=== PATIENT | male | born 1945 | race Caucasian/White ===

== ENCOUNTER 2018-07-17 11:51 | Outpatient (CLI) | payer MEDICARE ==
[2018-07-17 13:08] LABS: #Eosinphils 0.2 thou/uL (0.0-0.7); #Lymphocytes 1.4 thou/uL (1.20-3.40); #Monocytes 0.6 thou/uL (0.11-0.59); #Neutrophils 4.5 thou/uL (1.40-6.50); %Basophils 0.7 % (0.0-1.0); %Eosinophils 3.4 % (0.0-10.0); %Lymphocytes 19.9 % (21.0-51.0); %Monocytes 8.9 % (0.0-10.0); %Neutrophils 67.1 % (42.0-75.0); Hemoglobin 14.1 g/dL (14.0-18.0); Mean Corpuscular HGB CONC 33.5 g/dL (32.0-36.0); Mean Corpuscular Volume 92.4 fL (78.0-98.0); Mean Platelet Volume 8.4 fL (7.4-10.4); Platelet Count 204 thou/uL (130-400); RBC Distribution Width 13.1 % (11.5-14.5); Red Blood Cell (RBC) Count 4.57 mill/uL (4.70-6.10); White Blood Cell (WBC) Count 6.8 thou/uL (4.8-10.8)
[2018-07-17 13:21] LABS: INR-International Normal Ratio 1.2; PTT 29.3 SEC (22.9-36.1); Prothrombin Time 14.9 SEC (12.0-14.7)
[2018-07-17 13:37] LABS: ALT (SGPT) 22 U/L (8-55); AST (SGOT) 24 U/L (5-34); Albumin 4.9 g/dL (3.4-4.8); Alkaline Phosphatase 120 U/L (40-150); Anion Gap 14 mmol/L (10-20); BUN (Urea Nitrogen) 19 mg/dL (8.4-25.7); Bilirubin, Total 1.3 mg/dL (0.2-1.2); Calc. Creatinine Clearance 0 mL/min (70-130); Calcium 10.2 mg/dL (7.8-10.44); Carbon Dioxide 26 mmol/L (23-31); Chloride 106 mmol/L (98-107); Estimated GFR-MDRD 64; Globulin 2.5 g/dL (2.4-3.5); Glucose 100 mg/dL (83-110); Potassium 4.4 mmol/L (3.5-5.1); Protein, Total 7.4 g/dL (5.8-8.1); Sodium 142 mmol/L (136-145)
--- NOTE | 2018-07-17 13:47 | RAD ---
PA AND LATERAL CHEST: History: Pre-operative evaluation. FINDINGS: The heart size is borderline. The aorta is tortuous. The lungs are well expanded without lobar consol idation, pneumothoraces, jaleel pulmonary edema or pleural effusions. There are degenerative changes i n the spine. IMPRESSION: No radiographic evidence of acute cardiopulmonary process. POS: [facility]
--- NOTE | 2018-07-17 17:47 | EKG ---
Test Reason : Blood Pressure : / mmHG Vent. Rate : 052 BPM Atrial Rate : 052 BPM P-R Int : 166 ms QRS Dur : 094 ms QT Int : 426 ms P-R-T Axes : 062 -01 -54 degrees QTc Int : 396 ms Sinus bradycardia Left ventricular hypertrophy with repolarization abnormality Abnormal ECG When compared with ECG of 04-MAY-2015 14:06, T wave inversion more evident in Inferior leads T wave inversion now evident in Lateral leads Confirmed by DR. Juan Manuel STEINBERG ([id number]) on 07/17/2018 5:47:34 PM Referred By: PREM Confirmed By:DR. Juan Manuel STEINBERG
== END 2018-07-17 11:52 | disposition home or self-care (01) ==
LOC: LABBT 11:51
PROVIDERS: ATTEND Internal Medicine Cardiovascular Disease
DX: Z01.818 Encounter for other preprocedural examination (principal)
CPT/HCPCS: 71046; 80053; 85025; 85610; 85730; 93005; 93010

== ENCOUNTER 2018-07-23 05:53 | Inpatient (IN) | payer MEDICARE ==
[2018-07-23] MEDS ORDERED: Lidocaine 1% (PF) 30 ML VIAL ONE (06:39)
[2018-07-23] MEDS ORDERED: Fentanyl 100 MCG/2 ML VIAL ONE (07:05)
[2018-07-23] MEDS ORDERED: Heparin 10,000 UNITS/1 ML VIAL ONE (07:05)
[2018-07-23] MEDS ORDERED: Midazolam HCl 2 mg/2 ml Vial ONE (07:06)
[2018-07-23] MEDS ORDERED: Nitroglycerin 4.9 GM Bottle ONE (07:23)
[2018-07-23] MEDS ORDERED: Protamine Sulfate 50 MG/5 ML VIAL ONE (07:29)
[2018-07-23] MEDS ORDERED: Acetaminophen/Codeine 30-300mg Tablet PO PRN ×2 (07:53)
[2018-07-23] MEDS ORDERED: Nitroglycerin 0.4 MG TAB (25 Tab Bottle) SL PRN (07:53)
[2018-07-23] MEDS ORDERED: traMADol HCl 50 MG TAB PO PRN (07:53)
[2018-07-23] MEDS ORDERED: Sodium Chloride 0.9% 200 ML IV SCH (08:00)
[2018-07-23] MEDS ORDERED: Sodium Chloride 0.9% 1,000 ML IV SCH (08:00)
[2018-07-23 08:03] LABS: Cardiac Risk 3.5 (Less than 4.5)
[2018-07-23] MEDS ORDERED: Iopamidol 370 76% 100 ML VIAL ONE (08:26)
[2018-07-23] MEDS ORDERED: Iopamidol 370 76% 50 ML VIAL FS ONE (08:26)
[2018-07-23] MEDS ORDERED: Multivit, Therapeutic 1 TAB PO SCH (09:00)
[2018-07-23] MEDS ORDERED: Aspirin 325 mg Enteric Coated Tablet PO SCH (09:00)
[2018-07-23] MEDS ORDERED: Allopurinol 100 MG TAB PO SCH (09:00)
[2018-07-23] MEDS: Metoprolol Tartrate 25 MG TAB PO SCH ×2 (09:00→22:36)
[2018-07-23] MEDS: Nitroglycerin 2% Ointment 1 INCH/1 GM Packet TOP SCH ×2 (13:32→18:11)
[2018-07-23 15:24] VITALS: BMI 23.4
[2018-07-23] MEDS ORDERED: Communication Order-Pharmacy FS SCH (18:05)
[2018-07-23] MEDS ORDERED: Simvastatin 20 MG TAB PO SCH (21:00)
[2018-07-23] MEDS ORDERED: Atorvastatin Calcium 20 MG TAB PO SCH (21:00)
[2018-07-23] MEDS ORDERED: Famotidine 20 MG TAB PO SCH (21:00)
[2018-07-24] MEDS: Nitroglycerin 2% Ointment 1 INCH/1 GM Packet TOP SCH ×2 (02:51→06:29)
[2018-07-24] MEDS: Metoprolol Tartrate 25 MG TAB PO SCH ×2 (05:02→20:32)
[2018-07-24] MEDS ORDERED: CEFAZOLIN/Water 2 GM/20 ML SYRINGE ONE (06:12)
[2018-07-24] MEDS ORDERED: Midazolam HCl 5 mg/5 ml Vial ONE (06:30)
[2018-07-24] MEDS ORDERED: Phenylephrine HCL 10 MG/ML VIAL ONE (06:30)
[2018-07-24] MEDS ORDERED: Vecuronium 10 MG VIAL ONE ×2 (06:30→14:40)
[2018-07-24] MEDS ORDERED: Fentanyl 250 MCG/5 ML VIAL ONE (06:30)
[2018-07-24] MEDS ORDERED: Dexmedetomidine 200 MCG/2 ML VIAL ONE (06:30)
[2018-07-24] MEDS ORDERED: Albumin 5% 500 ML ONE (06:32)
[2018-07-24] MEDS ORDERED: Heparin 10,000 UNITS/1 ML VIAL 30,000 UNITS in Sodium Chloride 0.9% 1,000 ML FS SCH (06:45)
--- NOTE | 2018-07-24 07:23 | CON ---
DATE OF CONSULTATION: 07/23/2018 REQUESTING PHYSICIAN: Dr. Beebe. CHIEF COMPLAINT: Abnormal stress test. HISTORY OF PRESENT ILLNESS: The patient is a 73-year-old man with back problems that have progressed to the point that he now needs back surgery. Prior to getting to the point that he was no longer ab le to walk on the treadmill, he would consistently get chest tightness after about 10-15 minutes of w alking on the treadmill and that discomfort would resolve quite promptly when he would stop and rest. He did not have any associated diaphoresis, nausea or shortness of breath. He underwent stress tevin ting as part of preoperative evaluation prior to back surgery and that was markedly abnormal. His seline EKG was consistent with an LVH strain pattern and the nuclear stress testing showed reversible ischemia in the lateral wall, inferior wall, distal septum and apex. Cardiac catheterization today shows serial high grade lesions in the LAD and an occluded circumflex and an occluded right coronary. Dr. Beebe thought that his EF was around 45%-50%. I thought it was more like about 40%. PAST MEDICAL HISTORY: Significant for hyperlipidemia and kidney stones. HOME MEDICATIONS: Adult aspirin a day, simvastatin 20 mg at bedtime, Zantac 150 mg at bedtime, omepr azole 20 mg a day, allopurinol 150 mg a day, and a multivitamin. After his catheterization today, he was admitted to the hospital. His statin was switched to Lipitor 20 mg and he was started on Lopres sor 25 mg b.i.d. ALLERGIES: He denies any medical allergies. SOCIAL HISTORY: He has never smoked. FAMILY HISTORY: Significant for coronary artery disease in both of his parents. He has an older sis ter who has coronary artery disease. REVIEW OF SYSTEMS: Negative for any transient eye, speech, facial or extremity symptoms to suggest T IA. He is positive for his back pain. Prior to having to stop walking because of his back problems, he did not have any claudication symptoms. He has not had any recent illnesses. PHYSICAL EXAMINATION: GENERAL: Fairly healthy-appearing man in no distress. VITAL SIGNS: Height 5 foot 10.5, weight is 174 pounds, heart rate is 48, blood pressure 150/75, temp erature 97.9, room air sats are 96%. HEENT: He has no xanthelasma. NECK: No JVD, no carotid bruits. CHEST: Clear to auscultation. CARDIOVASCULAR: He has a regular rate and rhythm. ABDOMEN: Soft and nontender. EXTREMITIES: He has easily palpable radial, dorsalis pedis, and posterior tibial pulses. He has no clubbing, cyanosis or edema. He has no obvious varicosities. NEUROLOGIC: Grossly nonfocal. LABORATORY DATA AND IMAGING: Shows a white count of 6.8, hemoglobin 14.1, hematocrit 42.2, platelets 204,000. PT was 14.9, INR 1.2. Sodium 142, potassium 4.4, chloride 106, CO2 26, glucose 100, BUN 1 9, creatinine 1.12, bilirubin is 1.3, alkaline phosphatase 120, AST 24, ALT 22, albumin is 4.9, calci um 10.2, triglycerides 63, cholesterol 127, LDL 78, HDL 36. His chest x-ray showed some prominent va scular markings. Cardiac silhouette is probably the upper limit of normal. He has fairly prominent calcifications in his aortic knob. His cardiac catheterization shows a right dominant system. His l eft main is normal. The LAD has multiple 70%-90% lesions in its mid portion with an 80%-90% lesion j ust beyond the first septal church organist, there is a stenotic isolated diagonal, there is a compromised ramus with a high grade lesion proximally in it, but it bifurcates quickly and the branch vessels pr obably are too small to bypass. The circumflex proper is occluded and a bifurcated obtuse marginal c an be seen faintly filling left to left collaterals. The right coronary is occluded proximally and t he crux and distal branch vasculature can be faintly seen by left to right collaterals. LVEF by my e stimation is about 40% with global hypokinesis with LV pressure 178/6 and LV pressure on pullback 177 /73. LVEDP was 13. IMPRESSION AND PLAN: Three-vessel coronary artery disease with a low normal or perhaps mildly decrea sed LV function in a patient who is having class 2-3 angina prior to his back getting to the point th at he could not maintain an exercise regimen and who is in need of back surgery. I would discuss baldo atment options with the patient and I think he would be well served by coronary artery bypass graftnadia marin, which we will plan on doing tomorrow.
[2018-07-24] MEDS ORDERED: hydrALAZINE 20 MG/ML VIAL SLOW IVP PRN (07:45)
[2018-07-24] MEDS ORDERED: Hetastarch 6% 500 ML 500 ML IVPB PRN (07:45)
[2018-07-24] MEDS ORDERED: Post-Op Insulin Drip Protocol IVPB ONE (07:45)
[2018-07-24] MEDS ORDERED: Fentanyl 100 MCG/2 ML VIAL SLOW IVP PRN (07:45)
[2018-07-24] MEDS ORDERED: Mag-Al 1200 mg/1200 mg/30 ML UDCUP PO PRN (07:45)
[2018-07-24] MEDS ORDERED: DOPamine 400 MG/D5W 250 ML 250 ML IVPB PRN (07:45)
[2018-07-24] MEDS ORDERED: Promethazine HCl 25 MG/ML VIAL IM PRN (07:45)
[2018-07-24] MEDS ORDERED: Bisacodyl 5 MG TAB PO PRN (07:45)
[2018-07-24] MEDS ORDERED: HYDROcodone/Acetaminophen 5/325 mg Tablet PO PRN (07:45)
[2018-07-24] MEDS ORDERED: Nitroglycerin 50 MG/250 ML BOT 250 ML IVPB PRN (07:45)
[2018-07-24] MEDS ORDERED: Bisacodyl 10 MG SUPP PR PRN (07:45)
[2018-07-24] MEDS ORDERED: Acetaminophen 325 MG TAB PO PRN (07:45)
[2018-07-24] MEDS ORDERED: Guaifenesin DM 100-10/5 ML UDCUP PO PRN (07:45)
[2018-07-24] MEDS ORDERED: Lidocaine 2% PF 100 mg/5 ml Syringe ONE (07:57)
[2018-07-24] MEDS ORDERED: Sodium Bicarb 50 MEQ/50 ML VIAL ONE ×2 (07:57→14:40)
[2018-07-24] MEDS ORDERED: Nitroglycerin 50 MG/250 ML BOT ONE (07:57)
[2018-07-24] MEDS ORDERED: Calcium Chloride 1 GM/10 ML Abboject SYRINGE ONE (07:57)
[2018-07-24] MEDS ORDERED: Potassium Chloride 60 MEQ/30 ML VIAL ONE (07:57)
[2018-07-24] MEDS ORDERED: Mannitol 12.5 GM/50 ML ONE (07:57)
[2018-07-24] MEDS ORDERED: Magnesium 5 GM/10 ML VIAL ONE ×2 (07:57→14:40)
[2018-07-24] MEDS ORDERED: Aminocaproic Acid 5 GM/20 ML VIAL ONE ×2 (07:57→14:40)
[2018-07-24] MEDS ORDERED: Dextrose 50% Abboject 50 ML SYRINGE SLOW IVP PRN (08:20)
[2018-07-24] MEDS ORDERED: Insulin Regular 300 UNITS/3 ML VIAL SC PRN (08:20)
[2018-07-24] MEDS ORDERED: Dextrose 5% in Water 1,000 ML IV PRN (08:20)
[2018-07-24] MEDS ORDERED: Heparin 10,000 UNITS/1 ML VIAL ONE (08:32)
[2018-07-24] MEDS: Aspirin 325 MG TAB PO SCH (11:16)
[2018-07-24] MEDS: Ketorolac Tromethamine 30 MG/ML VIAL IVP SCH ×3 (12:21→22:39)
[2018-07-24] MEDS: Famotidine/PF 20 mg/2ml Vial SLOW IVP SCH ×2 (12:21→20:47)
[2018-07-24] MEDS: Ondansetron HCl/PF 4 MG/2 ML Vial IVP PRN ×2 (12:22→19:35)
[2018-07-24 12:27] LABS: Actual Bicarbonate (HCO3a) 21.3 mEq/L (22-28); Base Excess (BEa) -2.5 mEq/L (-2.0 to +3.0); CO2 Tension 33.6 mmHg (35.0-45.0); Calcium, Ionized 1.17 mmol/L (1.12-1.30); Carboxyhemoglobin (COHb) 0.7 gm% (0.0-3.0); Hemoglobin (Hb) 11.9 g/dL (14.0-18.0); O2 Tension (PaO2) 71.5 mmHg (> 70.0); Potassium - ABG Lab 3.37 mmol/L (3.70-5.30); pH, Arterial 7.42 (7.35-7.45)
[2018-07-24 12:29] LABS: Puncture Site LINE
[2018-07-24] MEDS: Sodium Chloride 0.9% 1,000 ML IV SCH ×2 (12:30→22:31)
[2018-07-24 12:33] LABS: INR-International Normal Ratio 1.5; PTT 29.9 SEC (22.9-36.1); Prothrombin Time 18.3 SEC (12.0-14.7)
[2018-07-24 12:54] LABS: Anion Gap 12 mmol/L (10-20); BUN (Urea Nitrogen) 16 mg/dL (8.4-25.7); Calc. Creatinine Clearance 81 mL/min (70-130); Calcium 8.8 mg/dL (7.8-10.44); Carbon Dioxide 22 mmol/L (23-31); Chloride 111 mmol/L (98-107); Estimated GFR-MDRD 86; Glucose 164 mg/dL (83-110); Potassium 3.5 mmol/L (3.5-5.1); Sodium 141 mmol/L (136-145)
[2018-07-24 13:04] LABS: #Eosinphils 0.2 thou/uL (0.0-0.7); #Lymphocytes 1.1 thou/uL (1.20-3.40); #Monocytes 0.7 thou/uL (0.11-0.59); #Neutrophils 10.7 thou/uL (1.40-6.50); %Basophils 0.3 % (0.0-1.0); %Eosinophils 1.5 % (0.0-10.0); %Lymphocytes 8.9 % (21.0-51.0); %Monocytes 5.6 % (0.0-10.0); %Neutrophils 83.7 % (42.0-75.0); Hemoglobin 11.4 g/dL (14.0-18.0); Mean Corpuscular HGB CONC 33.8 g/dL (32.0-36.0); Mean Corpuscular Hemoglobin 31.5 pg (27.0-31.0); Mean Corpuscular Volume 93.1 fL (78.0-98.0); Mean Platelet Volume 8.8 fL (7.4-10.4); Platelet Count 120 thou/uL (130-400); Potassium 3.4 mmol/L (3.5-5.1); RBC Distribution Width 13.2 % (11.5-14.5); Red Blood Cell (RBC) Count 3.63 mill/uL (4.70-6.10); White Blood Cell (WBC) Count 12.8 thou/uL (4.8-10.8)
--- NOTE | 2018-07-24 14:33 | RAD ---
PORTABLE AP CHEST X-RAY 07/24/18 HISTORY: Post open heart surgery. COMPARISON: 07/17/18. FINDINGS: Endotracheal tube is noted in place with the tip overlying C5-6 level and above the level of the venita na. Median sternotomy wires are not present. Mediastinal drain and left sided thoracostomy tube are n oted in place. Right subclavian central venous catheter is noted in place. The tip is difficult to vi sualize and probably overlies the region of the cavoatrial junction. There are parenchymal changes at each lung base probably related to mild bibasilar atelectasis. No pneumothorax or definite pleural e ffusion is seen. Vascular calcification seen in the thoracic aorta. IMPRESSION: 1. Interval postsurgical changes related to CABG. There is bibasilar atelectasis. 2. Lines and tubes in place as described above. POS: [facility]
[2018-07-24] MEDS ORDERED: Heparin 30,000 units/30 ml VIAL ONE (14:40)
[2018-07-24] MEDS ORDERED: Heparin 5,000 UNITS/ML VIAL ONE (14:40)
[2018-07-24] MEDS ORDERED: Lidocaine 1% PF 5 ML VIAL ONE (14:40)
[2018-07-24] MEDS ORDERED: Cardioplegic Soln 1,000 ML BAG ONE (14:40)
[2018-07-24] MEDS ORDERED: ePHEDrine/0.9% NaCl/PF SYRINGE 50 mg/10 ml ONE (14:40)
[2018-07-24] MEDS ORDERED: Protamine Sulfate 250 MG/25 ML VIAL ONE (14:40)
[2018-07-24] MEDS ORDERED: Glycopyrrolate 0.2 MG/ML 5 ML SYRINGE ONE (14:40)
[2018-07-24] MEDS ORDERED: PROPOFOL 200 MG/20 ML VIAL ONE (14:40)
[2018-07-24] MEDS ORDERED: Papaverine 60 MG/2 ML VIAL ONE (14:40)
[2018-07-24] MEDS: Potassium Chloride 20 MEQ/100 ML PREMIX BAG IVPB PRN ×2 (15:17→18:56)
--- NOTE | 2018-07-24 15:29 | OP ---
DATE OF PROCEDURE: 07/24/2018 PROCEDURES PERFORMED: Coronary artery bypass grafting x4 with left internal mammary artery to the di stal LAD and reverse greater saphenous vein grafts from the aorta to the PDA, the obtuse marginal and the first diagonal. PREOPERATIVE DIAGNOSIS: Coronary artery disease. POSTOPERATIVE DIAGNOSIS: Coronary artery disease. SURGEON: Jose Ernst M.D. SCIENTIFIC PHOTOGRAPHER: Dr. Gomez. ANESTHESIA: General endotracheal anesthesia. INDICATIONS: The patient is a 73-year-old man who prior to his back problems getting bad enough that he had to quit walking on his treadmill for exercise, was having predictable angina 10-15 minutes of walking. Stress testing prior to back surgery was markedly abnormal and cardiac catheterization narciso wed severe three-vessel disease with diffusely diseased LAD and occluded circumflex in right coronary systems with mildly decreased or at best low normal ejection fraction. After discussing options wit h him, he was taken to the operating room for revascularization. FINDINGS: Pump time, 88 minutes. Crossclamp time, 51 minutes. Good quality ZARINA. The saphenous vei n was of good quality, but became somewhat small below the knee. The LAD were grafted distally with about a 2 mm vessel that was diffusely involved with soft plaque. Proximally, it was involved diffus radha with hard plaque. The first diagonal was about 1.5 mm in the obtuse marginal, prior to a bifurca tion was about 2 mm. The PDA was about 1.5-2 mm. All of those vessels were good quality. The peric ardium was closed. NARRATIVE REPORT: After informed consent was obtained, the patient was taken to the operating room a nd placed in the supine position on the operating table. After the induction of general anesthesia, ultrasonographic mapping of his saphenous veins was undertaken, although of reasonable size bilateral ly, on the left side it was extremely superficial, whereas on the right side it ran in a deeper cours e more amenable to endoscopic harvesting. The patient's right chest was prepped and draped in steril e fashion and a triple-lumen central line kit was used to place a right subclavian central line by th e Seldinger technique. All three ports easily aspirated and flushed. The line was secured. The pat ient's torso, groins and lower extremities were then prepped and draped in sterile fashion. The carmen menendez harvested greater saphenous vein endoscopically from the right thigh and upper calf. It was pr epared for use as a graft. A median sternotomy was performed. The left ZARINA was mobilized as a pedic le from the level of the xiphoid to the level of the subclavian vein through an extrapleural exposure . The vein harvest sites were closed in layers of subcutaneous and subcuticular Vicryl. The patient was heparinized. There was good flow through the mammary, which was then instilled intraluminally w ith papaverine solution. The mammary bed was inspected for hemostasis. The ZARINA retractor was placed with a Galan retractor. The pericardium was opened and marsupialized. The aorta was palpated an d it was soft. A double concentric pursestring of 2-0 Ethibond was placed in the ascending aorta wit hin the pericardial reflection and a single pursestring was placed in the right atrial appendage. Ao rtic and venous cannulae were inserted and secured by their pursestrings. Cardiopulmonary bypass was instituted and the patient was systemically cooled. The heart was examined. The vessel to be bypas sed were identified. The plane between the aorta and the pulmonary artery was developed. A longitud inal slit was made in the pericardium anterior to the left phrenic nerve through which the mammary pe dicle could be passed and the aortic crossclamp was applied and cardioplegia was administered through an aortic root needle. When arrest had been achieved, attention was turned to the distal right wanda nary system. The proximal PDA was opened with a [place] blade and Pella scissors and reverse great er saphenous vein was anastomosed there end-to-side with running Prolene suture and the anastomosis w as tested by flushing cold cardioplegia down the graft. The proximal portion of the obtuse marginal and the first diagonal were then each opened and grafted in the similar fashion. The LAD was then op ened. Relatively generous arteriotomy was made in order to have the heel and the toe of the anastomo sis and relatively good quality vessel. The mammary was generously spatulated and anastomosed there with running 7-0 Prolene. The mammary pedicle was tacked to the epicardium and the aortic crossclamp was placed with a partial occluding clamp. Aortotomy was made in the ascending aorta with a scalpel and punch incorporating the root needle site for one of the aortotomies. The PDA graft was brought along the right side of the heart and anastomosed to the most proximal aortotomy. The diagonal and o btuse marginal grafts were brought along the left side of the heart and anastomosed to the middle and distal aortotomies respectively. The proximal anastomoses were marked with small Hemoclips. The pa rtial occluding clamp was removed and the vein grafts deaired and the bulldogs removed from the anast omoses were inspected for hemostasis. Posterior pericardial drain was brought out through separate i ncision and secured to the skin suture. Right atrial and right ventricular temporary epicardial paci ng wires were placed. The patient was easily from cardiopulmonary bypass. The aortic and venous cannulae were removed and their pursestring secured. Protamine was administered. When hemost asis was adequate, an anterior mediastinal drain was placed and the pericardium was easily closed ove r with running Vicryl. Vancomycin paste was applied to the cut surfaces of the sternum and the darnell um was then reapproximated with #7 stainless steel wires. The fascia was closed over the wires with heavy Vicryl. The subcutaneous tissue was irrigated and reapproximated and the skin was closed with Vicryl subcuticular stitch. The wounds were dressed and the patient was taken to the intensive care unit in stable condition.
[2018-07-24 17:53] LABS: Base Excess (BEa) -0.1 mEq/L (-2.0 to +3.0); CO2 Tension 27.9 mmHg (35.0-45.0); Carboxyhemoglobin (COHb) 1.1 gm% (0.0-3.0); Hemoglobin (Hb) 11.1 g/dL (14.0-18.0); O2 Tension (PaO2) 75.3 mmHg (> 70.0); Potassium - ABG Lab 4.16 mmol/L (3.70-5.30); pH, Arterial 7.52 (7.35-7.45)
[2018-07-24 17:54] LABS: ALV-art Gradient 103.725 (0-20); Puncture Site LINE
[2018-07-24] MEDS: Fentanyl 100 MCG/2 ML VIAL SLOW IVP PRN ×2 (18:10→20:46)
[2018-07-24 18:27] LABS: Hemoglobin 10.4 g/dL (14.0-18.0); Platelet Count 127 thou/uL (130-400)
[2018-07-24 18:40] LABS: Potassium 3.9 mmol/L (3.5-5.1)
[2018-07-24] MEDS: Atorvastatin Calcium 20 MG TAB PO SCH (20:47)
[2018-07-25] MEDS: Fentanyl 100 MCG/2 ML VIAL SLOW IVP PRN (02:39)
[2018-07-25] MEDS: Ondansetron HCl/PF 4 MG/2 ML Vial IVP PRN (04:37)
[2018-07-25] MEDS: Ketorolac Tromethamine 30 MG/ML VIAL IVP SCH (05:05)
[2018-07-25 05:27] LABS: #Lymphocytes 0.9 thou/uL (1.20-3.40); #Monocytes 0.9 thou/uL (0.11-0.59); %Basophils 0.1 % (0.0-1.0); %Eosinophils 0.1 % (0.0-10.0); %Lymphocytes 9.3 % (21.0-51.0); %Monocytes 9.4 % (0.0-10.0); %Neutrophils 81.1 % (42.0-75.0); Hemoglobin 9.2 g/dL (14.0-18.0); Mean Corpuscular HGB CONC 32.2 g/dL (32.0-36.0); Mean Corpuscular Hemoglobin 30.3 pg (27.0-31.0); Mean Corpuscular Volume 94.1 fL (78.0-98.0); Mean Platelet Volume 8.9 fL (7.4-10.4); Platelet Count 121 thou/uL (130-400); RBC Distribution Width 13.2 % (11.5-14.5); Red Blood Cell (RBC) Count 3.03 mill/uL (4.70-6.10); White Blood Cell (WBC) Count 9.9 thou/uL (4.8-10.8)
[2018-07-25 05:47] LABS: Anion Gap 10 mmol/L (10-20); BUN (Urea Nitrogen) 18 mg/dL (8.4-25.7); Calc. Creatinine Clearance 73 mL/min (70-130); Calcium 8.4 mg/dL (7.8-10.44); Carbon Dioxide 23 mmol/L (23-31); Chloride 111 mmol/L (98-107); Estimated GFR-MDRD 71; Glucose 143 mg/dL (83-110); Potassium 4.3 mmol/L (3.5-5.1); Sodium 140 mmol/L (136-145)
--- NOTE | 2018-07-25 09:24 | RAD ---
AP VIEW CHEST: INDICATIONS: History of postoperative heart surgery. FINDINGS: The patient has been extubated. The right subclavian central venous catheter is stable. Mild cardio megaly is stable. Midline sternotomy changes are similar. Midline mediastinal drain is unchanged. There is slight worsening air space opacity within the left lower lobe, which may be related to subse gmental volume loss. Developing pneumonia is not excluded. No pneumothorax is evident. IMPRESSION: 1. Interval extubation. 2. Worsening left basilar air space opacity may reflect worsening atelectasis or pneumonia. Recomme nd continued followup. 3. Persistent drain within the lower mediastinum. Stable right subclavian central venous catheter. 4. Stable cardiomegaly. POS: [facility]
[2018-07-25] MEDS: Famotidine/PF 20 mg/2ml Vial SLOW IVP SCH (09:33)
[2018-07-25] MEDS: Aspirin 325 MG TAB PO SCH (09:33)
[2018-07-25] MEDS: Metoprolol Tartrate 25 MG TAB PO SCH ×2 (09:34→21:20)
[2018-07-25] MEDS: HYDROcodone/Acetaminophen 5/325 mg Tablet PO PRN ×2 (11:23→15:42)
[2018-07-25] MEDS ORDERED: Insulin Glargine 3 UNITS in Pre-Filled Syringe 1 EACH SC SCH (12:30)
[2018-07-25] MEDS: Sodium Chloride 0.9% 1,000 ML IV SCH (17:36)
[2018-07-25] MEDS ORDERED: Mineral Oil ENEMA PR PRN (19:16)
[2018-07-25] MEDS ORDERED: Zolpidem Tartrate 5 MG TAB PO PRN (19:16)
[2018-07-25] MEDS ORDERED: diphenhydrAMINE 25 MG CAP PO PRN (19:16)
[2018-07-25] MEDS ORDERED: Nitroglycerin 0.4 MG TAB (25 Tab Bottle) SL PRN (19:16)
[2018-07-25] MEDS ORDERED: Bisacodyl 10 MG SUPP PR PRN (19:16)
[2018-07-25] MEDS ORDERED: Guaifenesin DM 100-10/5 ML UDCUP PO PRN (19:16)
[2018-07-25] MEDS ORDERED: Mag-Al 1200 mg/1200 mg/30 ML UDCUP PO PRN (19:16)
[2018-07-25] MEDS ORDERED: Artificial Tear Sol 15 ML BOT EA EYE PRN (19:24)
[2018-07-25] MEDS: Atorvastatin Calcium 20 MG TAB PO SCH (21:14)
[2018-07-25] MEDS: Famotidine 20 MG TAB PO SCH (21:20)
[2018-07-26] MEDS: HYDROcodone/Acetaminophen 5/325 mg Tablet PO PRN ×3 (03:05→21:44)
[2018-07-26 05:34] LABS: #Lymphocytes 1.2 thou/uL (1.20-3.40); #Monocytes 1.3 thou/uL (0.11-0.59); #Neutrophils 8.6 thou/uL (1.40-6.50); %Basophils 0.3 % (0.0-1.0); %Eosinophils 0.4 % (0.0-10.0); %Lymphocytes 10.8 % (21.0-51.0); %Monocytes 11.9 % (0.0-10.0); %Neutrophils 76.5 % (42.0-75.0); Hemoglobin 9.3 g/dL (14.0-18.0); Mean Corpuscular HGB CONC 32.9 g/dL (32.0-36.0); Mean Corpuscular Hemoglobin 31.1 pg (27.0-31.0); Mean Corpuscular Volume 94.7 fL (78.0-98.0); Mean Platelet Volume 9.1 fL (7.4-10.4); Platelet Count 123 thou/uL (130-400); RBC Distribution Width 13.3 % (11.5-14.5); Red Blood Cell (RBC) Count 2.99 mill/uL (4.70-6.10); White Blood Cell (WBC) Count 11.2 thou/uL (4.8-10.8)
[2018-07-26 05:45] LABS: Anion Gap 11 mmol/L (10-20); BUN (Urea Nitrogen) 29 mg/dL (8.4-25.7); Calc. Creatinine Clearance 67 mL/min (70-130); Calcium 8.6 mg/dL (7.8-10.44); Carbon Dioxide 24 mmol/L (23-31); Chloride 106 mmol/L (98-107); Estimated GFR-MDRD 58; Glucose 136 mg/dL (83-110); Potassium 4.2 mmol/L (3.5-5.1); Sodium 137 mmol/L (136-145)
--- NOTE | 2018-07-26 08:10 | RAD ---
FRONTAL RADIOGRAPH CHEST: Date: 07/26/18 COMPARISON: 07/25/18. HISTORY: Evaluate chest following open heart surgery. FINDINGS: Stable right-sided vascular catheter. Stable drainable catheters overlie the inferior aspect of the c ardiac silhouette/epigastric region. There is nonspecific partial consolidation/collapse of the left lower lobe with blunting of left costophrenic angle suggesting nonspecific stable left pleural densit y. Midline sternotomy wires are unchanged. Stable atherosclerotic calcification of the aortic arch. IMPRESSION: Postoperative changes as described above. Persistent nonspecific left basilar opacity. POS: [facility]
[2018-07-26] MEDS: Aspirin 325 mg Enteric Coated Tablet PO SCH (08:13)
[2018-07-26] MEDS: Famotidine 20 MG TAB PO SCH ×2 (08:13→21:50)
[2018-07-26] MEDS: Metoprolol Tartrate 25 MG TAB PO SCH ×2 (08:13→21:48)
[2018-07-26] MEDS ORDERED: Amiodarone HCl 150 MG, Admixture Fee 1 EACH in Dextrose 5% in Water 100 ML IVPB SCH (16:30)
[2018-07-26 16:38] LABS: ALT (SGPT) 70 U/L (8-55); AST (SGOT) 73 U/L (5-34); Albumin 3.8 g/dL (3.4-4.8); Alkaline Phosphatase 77 U/L (40-150); Bilirubin, Direct 0.4 mg/dL (0.1-0.3); Bilirubin, Total 0.9 mg/dL (0.2-1.2); Magnesium 2.1 mg/dL (1.6-2.6); Protein, Total 5.9 g/dL (5.8-8.1)
[2018-07-26] MEDS: Amiodarone HCl 450 MG, Admixture Fee 1 EACH in Dextrose 5% in Water 250 ML IVPB SCH (16:51)
[2018-07-26] MEDS: Atorvastatin Calcium 20 MG TAB PO SCH (21:49)
[2018-07-26] MEDS: Ondansetron HCl/PF 4 MG/2 ML Vial IVP PRN (23:47)
[2018-07-27] MEDS: Amiodarone HCl 450 MG, Admixture Fee 1 EACH in Dextrose 5% in Water 250 ML IVPB SCH (00:15)
[2018-07-27] MEDS: HYDROcodone/Acetaminophen 5/325 mg Tablet PO PRN ×3 (01:43→22:07)
[2018-07-27 06:47] LABS: #Eosinphils 0.1 thou/uL (0.0-0.7); #Lymphocytes 1.6 thou/uL (1.20-3.40); #Monocytes 1.2 thou/uL (0.11-0.59); #Neutrophils 7.7 thou/uL (1.40-6.50); %Basophils 0.4 % (0.0-1.0); %Eosinophils 1.2 % (0.0-10.0); %Lymphocytes 14.9 % (21.0-51.0); %Neutrophils 72.5 % (42.0-75.0); Hemoglobin 9.5 g/dL (14.0-18.0); Mean Corpuscular HGB CONC 32.7 g/dL (32.0-36.0); Mean Corpuscular Hemoglobin 31.1 pg (27.0-31.0); Mean Corpuscular Volume 95.1 fL (78.0-98.0); Mean Platelet Volume 9.3 fL (7.4-10.4); Platelet Count 136 thou/uL (130-400); RBC Distribution Width 13.1 % (11.5-14.5); Red Blood Cell (RBC) Count 3.05 mill/uL (4.70-6.10); White Blood Cell (WBC) Count 10.7 thou/uL (4.8-10.8)
[2018-07-27 07:07] LABS: Anion Gap 8 mmol/L (10-20); BUN (Urea Nitrogen) 26 mg/dL (8.4-25.7); Calc. Creatinine Clearance 72 mL/min (70-130); Carbon Dioxide 28 mmol/L (23-31); Chloride 102 mmol/L (98-107); Estimated GFR-MDRD 63; Glucose 119 mg/dL (83-110); Potassium 4.4 mmol/L (3.5-5.1); Sodium 134 mmol/L (136-145)
[2018-07-27] MEDS: Famotidine 20 MG TAB PO SCH ×2 (09:24→20:58)
[2018-07-27] MEDS: Aspirin 325 mg Enteric Coated Tablet PO SCH (09:24)
[2018-07-27] MEDS: Metoprolol Tartrate 25 MG TAB PO SCH ×2 (09:24→20:58)
[2018-07-27] MEDS: Bisacodyl 5 MG TAB PO PRN (15:03)
--- NOTE | 2018-07-27 15:58 | PDOC.CTH ---
Cardiology Progress Note - Subjective He is doing well. He has not had a BM for last 2 days. C/O Leg edema. - Objective Vital Signs Temp Pulse Pulse Pulse Resp BP BP 07/27/18 15:05 98.4 F 72 14 07/27/18 14:29 74 72 154/75 H 125/69 07/27/18 11:15 98.1 F 68 17 07/27/18 08:52 74 70 160/75 H 127/76 07/27/18 07:10 98.1 F 69 16 07/27/18 05:43 07/27/18 04:00 97.4 F L 63 16 BP BP Pulse Ox Pulse Ox Pulse Ox 07/27/18 15:05 138/75 94 L 07/27/18 14:29 96 94 L 07/27/18 11:15 120/70 92 L 07/27/18 08:52 95 98 07/27/18 07:10 127/75 96 07/27/18 05:43 92 L 07/27/18 04:00 117/71 95 Weight 194 lb 3.2 oz 07/26/18 07/27/18 07/28/18 06:59 06:59 06:59 Intake Total 1993 1363 Output Total 1050 810 Balance 943 553 - Physical Examination General/Neuro: NAD Neck: no JVD present Lungs: CTA, unlabored respirations Heart: RRR Abdomen: NT/ND Extremities: + edema B (2+) - Telemetry Telemetry Rhythm: NSR - Labs Result Diagrams: 07/27/18 06:30 07/27/18 06:30 - Assessment/Plan 1. CAD. 2. S/P CABG 3. Post op afib 4. Constipation. PLAN: - Will start PO lasix - Will switch amiodarone to PO - Will start scheduled docusate.
[2018-07-27] MEDS ORDERED: Furosemide 40 MG TAB PO SCH (16:00)
[2018-07-27] MEDS: Amiodarone 200 MG TAB PO SCH (20:58)
[2018-07-27] MEDS: Atorvastatin Calcium 20 MG TAB PO SCH (20:58)
[2018-07-27] MEDS: Docusate 100 MG CAP PO SCH (20:58)
[2018-07-28 06:10] LABS: Anion Gap 11 mmol/L (10-20); BUN (Urea Nitrogen) 25 mg/dL (8.4-25.7); Calc. Creatinine Clearance 84 mL/min (70-130); Carbon Dioxide 30 mmol/L (23-31); Chloride 101 mmol/L (98-107); Estimated GFR-MDRD 77; Glucose 119 mg/dL (83-110); Potassium 3.7 mmol/L (3.5-5.1); Sodium 138 mmol/L (136-145)
[2018-07-28 06:15] LABS: Hemoglobin 11.3 g/dL (14.0-18.0); Mean Corpuscular HGB CONC 31.6 g/dL (32.0-36.0); Mean Corpuscular Hemoglobin 29.6 pg (27.0-31.0); Mean Corpuscular Volume 93.8 fL (78.0-98.0); Mean Platelet Volume 9.2 fL (7.4-10.4); Platelet Count 107 thou/uL (130-400); RBC Distribution Width 13.5 % (11.5-14.5); Red Blood Cell (RBC) Count 3.81 mill/uL (4.70-6.10); White Blood Cell (WBC) Count 6.4 thou/uL (4.8-10.8)
[2018-07-28 06:42] LABS: Eosinophils 2 % (0-10); Hypochromia SLIGHT = 6-15 cells (100X) (0-5/hpf); Lymphocytes 11 % (21-51); MDiff Complete? YES; Monocytes 3 % (0-10); Neutrophil 84 % (42-75); PLT Morphology Comment Appears Decreased
[2018-07-28] MEDS ORDERED: Milk Of Magnesia 30 ML UDCUP PO PRN (07:23)
[2018-07-28] MEDS ORDERED: Metolazone 5 MG TAB PO SCH (07:45)
[2018-07-28] MEDS: Furosemide 40 MG TAB PO SCH (08:03)
[2018-07-28] MEDS: Amiodarone 200 MG TAB PO SCH ×2 (08:04→21:08)
[2018-07-28] MEDS: Metoprolol Tartrate 25 MG TAB PO SCH ×2 (08:05→21:08)
[2018-07-28] MEDS: Aspirin 325 mg Enteric Coated Tablet PO SCH (08:05)
[2018-07-28] MEDS: HYDROcodone/Acetaminophen 5/325 mg Tablet PO PRN (08:05)
[2018-07-28] MEDS: Docusate 100 MG CAP PO SCH ×2 (08:05→21:08)
[2018-07-28] MEDS: Famotidine 20 MG TAB PO SCH ×2 (08:06→21:08)
--- NOTE | 2018-07-28 08:36 | PDOC.CTH ---
<Layne Moran - Last Filed: 07/28/18 08:35> Cardiology Progress Note - Subjective No complaints. Up in room. - Objective Vital Signs Temp Pulse Resp BP Pulse Ox 07/28/18 07:05 98.3 F 62 13 147/76 H 94 L 07/28/18 05:20 97 07/28/18 04:00 97.7 F 55 L 16 118/71 97 Weight 191 lb 8 oz 07/27/18 07/28/18 07/29/18 06:59 06:59 06:59 Intake Total 1363 1240 Output Total 810 2035 Balance 553 -795 - Physical Examination General/Neuro: alert & oriented x3 Neck: no JVD present Lungs: CTA Heart: RRR Abdomen: NT/ND Extremities: other: (trace edema) - Telemetry Telemetry Rhythm: SR - Labs Result Diagrams: 07/28/18 05:40 07/28/18 05:40 - Assessment/Plan 1. CAD s/p CABg x 4 2. Post-op AF Overall doing well. Up walking and edema improved per patient. Good output. Remains in SR. Hopefully home in the next few days. <Tyler Li - Last Filed: 07/28/18 14:39> Cardiology Progress Note - Objective Vital Signs Temp Pulse Pulse Pulse Resp BP BP 07/28/18 11:20 97.8 F 70 15 07/28/18 11:08 70 61 148/75 H 139/72 07/28/18 08:40 64 64 119/62 145/74 H 07/28/18 07:05 98.3 F 62 13 07/28/18 05:20 07/28/18 04:00 97.7 F 55 L 16 BP Pulse Ox Pulse Ox Pulse Ox 07/28/18 11:20 148/75 H 93 L 07/28/18 11:08 93 L 94 L 07/28/18 08:40 91 L 96 07/28/18 07:05 147/76 H 94 L 07/28/18 05:20 97 07/28/18 04:00 118/71 97 Weight 191 lb 8 oz 07/27/18 07/28/18 07/29/18 06:59 06:59 06:59 Intake Total 1363 1240 Output Total 810 2035 Balance 553 -795 - Labs Result Diagrams: 07/28/18 05:40 07/28/18 05:40 - Assessment/Plan Pt seen and examined. Agree with above.
[2018-07-28] MEDS: Bisacodyl 5 MG TAB PO PRN (13:55)
[2018-07-28] MEDS: Atorvastatin Calcium 20 MG TAB PO SCH (21:08)
[2018-07-29 06:12] LABS: #Eosinphils 0.1 thou/uL (0.0-0.7); #Lymphocytes 0.8 thou/uL (1.20-3.40); #Neutrophils 8.2 thou/uL (1.40-6.50); %Basophils 0.2 % (0.0-1.0); %Eosinophils 0.7 % (0.0-10.0); %Lymphocytes 7.4 % (21.0-51.0); %Monocytes 10.2 % (0.0-10.0); %Neutrophils 81.6 % (42.0-75.0); Hemoglobin 9.6 g/dL (14.0-18.0); Mean Corpuscular HGB CONC 32.9 g/dL (32.0-36.0); Mean Corpuscular Hemoglobin 30.7 pg (27.0-31.0); Mean Corpuscular Volume 93.1 fL (78.0-98.0); Mean Platelet Volume 8.2 fL (7.4-10.4); Platelet Count 192 thou/uL (130-400); RBC Distribution Width 13.2 % (11.5-14.5); Red Blood Cell (RBC) Count 3.13 mill/uL (4.70-6.10); White Blood Cell (WBC) Count 10.1 thou/uL (4.8-10.8)
[2018-07-29 06:29] LABS: Anion Gap 12 mmol/L (10-20); BUN (Urea Nitrogen) 20 mg/dL (8.4-25.7); Calc. Creatinine Clearance 82 mL/min (70-130); Calcium 9.8 mg/dL (7.8-10.44); Carbon Dioxide 35 mmol/L (23-31); Chloride 95 mmol/L (98-107); Estimated GFR-MDRD 79; Glucose 138 mg/dL (83-110); Potassium 3.6 mmol/L (3.5-5.1); Sodium 138 mmol/L (136-145)
--- NOTE | 2018-07-29 08:18 | DIS ---
DATE OF ADMISSION: 07/23/2018 DATE OF DISCHARGE: 07/29/2018 CONSULTATION: Dr. Jose Ernst. DIAGNOSES: 1. Hyperlipidemia. 2. Renal stones. 3. Coronary artery disease. PROCEDURES: Coronary artery bypass grafting x4 with a left internal mammary artery to LAD, saphenous vein graft to PDA, OM, first diagonal. DESCRIPTION OF HOSPITAL STAY: Mr. Gómez is a 73-year-old gentleman who was [facility] by Dr. Beebe with back problems. He needed to have back surgery and failed a stress test. [facility] catheterization revealed severe 3-vessel disease with ejection fraction between 40% and 50%. A fter catheterization, he was brought to the operating room on 07/24/2018 and underwent coronary arter y bypass grafting as above. Postoperatively, he has done well. He has had a bout of atrial fibrilla tion, which has been controlled with amiodarone. At the time of discharge, he is ambulatory, tolerat ing regular diet, having good bowel and bladder function. Incisions are clean and dry without eviden ce of infection. DISCHARGE MEDICATIONS: Include, 1. Aspirin 325 mg daily. 2. Allopurinol 150 mg daily. 3. Protonix 20 mg daily. 4. Zocor 20 mg at bedtime. 5. Amiodarone 400 mg b.i.d. 6. Lopressor 25 mg b.i.d. 7. Chancellor 5/325 1-2 q.6 hours p.r.n. pain. FOLLOWUP: Follow up with Dr. Jose Ernst in [address] Beebe in a month.
[2018-07-29 08:39] VITALS: BP 140/72; TEMP 98.4
[2018-07-29] MEDS: Amiodarone 200 MG TAB PO SCH (08:44)
[2018-07-29] MEDS: Furosemide 40 MG TAB PO SCH (08:44)
[2018-07-29] MEDS: Aspirin 325 mg Enteric Coated Tablet PO SCH (08:45)
[2018-07-29] MEDS: Docusate 100 MG CAP PO SCH (08:45)
[2018-07-29] MEDS: Famotidine 20 MG TAB PO SCH (08:45)
[2018-07-29] MEDS: Metoprolol Tartrate 25 MG TAB PO SCH (08:45)
--- NOTE | 2018-07-29 16:45 | EKG ---
Test Reason : POST CABG Blood Pressure : / mmHG Vent. Rate : 067 BPM Atrial Rate : 067 BPM P-R Int : 158 ms QRS Dur : 118 ms QT Int : 468 ms P-R-T Axes : 075 -35 068 degrees QTc Int : 494 ms Normal sinus rhythm Left axis deviation Non-specific intra-ventricular conduction delay Prolonged QT Abnormal ECG When compared with ECG of 17-JUL-2018 12:30, QRS duration has increased T wave inversion no longer evident in Inferior leads QT has lengthened Confirmed by RENNY AMARO (2) on 07/29/2018 4:44:39 PM Referred By: NOEMY Confirmed By:RENNY AMARO
== END 2018-07-29 11:05 | disposition home or self-care (01) | DRG 234 ==
LOC: CCL 05:53 → 2SE 07:36 → CCU 07-24 07:24 → 2NO 07-25 18:34
PROVIDERS: ADMIT Internal Medicine Cardiovascular Disease; ATTEND Internal Medicine Cardiovascular Disease
PROC: 4A023N7 Measurement of Cardiac Sampling and Pressure, Left Heart, Percutaneous Approach (ICD-10-PCS; 2018-07-23)
PROC: B2111ZZ Fluoroscopy of Multiple Coronary Arteries using Low Osmolar Contrast (ICD-10-PCS; 2018-07-23)
PROC: B2151ZZ Fluoroscopy of Left Heart using Low Osmolar Contrast (ICD-10-PCS; 2018-07-23)
PROC: 0213099 Bypass Coronary Artery, Four or More Arteries from Left Internal Mammary with Autologous Venous Tissue, Open Approach (ICD-10-PCS; principal; 2018-07-24)
DX: I25.10 Atherosclerotic heart disease of native coronary artery without angina pectoris (principal); E78.5 Hyperlipidemia, unspecified; N20.0 Calculus of kidney; I48.91 Unspecified atrial fibrillation; Z79.82 Long term (current) use of aspirin; Z79.899 Other long term (current) drug therapy; Z96.652 Presence of left artificial knee joint; K59.00 Constipation, unspecified
CPT/HCPCS: 36415; 36416; 36430; 71045; 80048; 80061; 80076; 82805; 83735; 84443; 85025; 85610; 85730; 86850; 86900; 86901; 93005; 93010; 93458; 93798; 94002; 94150; 99152; A4216; C1769; J0282; J1265; J1642; J1644; J1815; J1885; J2001; J2150; J2250; J2270; J2370; J2405; J2440; J2597; J2704; J2720; J3010; J3370; J3475; J3480; J7050; J7070; P9045; S0017; S0028

== ENCOUNTER 2018-12-07 14:01 | Outpatient (CLI) | payer MEDICARE ==
[2018-12-07 14:47] LABS: Hemoglobin 11.5 g/dL (14.0-18.0); Mean Corpuscular HGB CONC 32.5 g/dL (32.0-36.0); Mean Corpuscular Hemoglobin 30.7 pg (27.0-31.0); Mean Corpuscular Volume 94.5 fL (78.0-98.0); Mean Platelet Volume 8.8 fL (7.4-10.4); Platelet Count 177 thou/uL (130-400); RBC Distribution Width 13.7 % (11.5-14.5); Red Blood Cell (RBC) Count 3.76 mill/uL (4.70-6.10); White Blood Cell (WBC) Count 7.3 thou/uL (4.8-10.8)
[2018-12-07 14:57] LABS: INR-International Normal Ratio 1.2; PTT 28.2 SEC (22.9-36.1); Prothrombin Time 15.4 SEC (12.0-14.7)
[2018-12-07 15:08] LABS: Anion Gap 9 mmol/L (10-20); BUN (Urea Nitrogen) 20 mg/dL (8.4-25.7); Calc. Creatinine Clearance 0 mL/min (70-130); Calcium 9.9 mg/dL (7.8-10.44); Carbon Dioxide 29 mmol/L (23-31); Chloride 109 mmol/L (98-107); Estimated GFR-MDRD 59; Glucose 100 mg/dL (83-110); Potassium 4.2 mmol/L (3.5-5.1); Sodium 143 mmol/L (136-145)
== END 2018-12-07 14:02 | disposition home or self-care (01) ==
LOC: LABBT 14:01
PROVIDERS: ATTEND Surgery
DX: Z01.818 Encounter for other preprocedural examination (principal); M54.16 Radiculopathy, lumbar region; M43.16 Spondylolisthesis, lumbar region
CPT/HCPCS: 80048; 85027; 85610; 85730; 93005; 93010

== ENCOUNTER 2018-12-11 09:36 | Day surgery (SDC) | payer MEDICARE ==
[2018-12-07 13:52] VITALS: BMI 23.1
[2018-12-11] MEDS ORDERED: CEFAZOLIN 2 GM/50 ML BAG ONE (10:38)
[2018-12-11] MEDS ORDERED: Bacitracin Zinc Ointment 30 gm TUBE ONE (12:05)
[2018-12-11] MEDS ORDERED: Sodium Chloride 0.9% 10 ML ONE (12:05)
[2018-12-11] MEDS ORDERED: Thrombin 5000 UNITS/5 ML VIAL ONE (12:05)
[2018-12-11] MEDS ORDERED: Fentanyl 100 MCG/2 ML VIAL ONE ×2 (13:12→16:57)
[2018-12-11] MEDS ORDERED: Bisacodyl 10 MG SUPP PR PRN (16:41)
[2018-12-11] MEDS ORDERED: Morphine 4 MG/ML VIAL SLOW IVP PRN (16:41)
[2018-12-11] MEDS ORDERED: tiZANidine HCl 4 MG TAB PO PRN (16:41)
[2018-12-11] MEDS ORDERED: traMADol HCl 50 MG TAB PO PRN (16:41)
[2018-12-11] MEDS ORDERED: Promethazine HCl 25 MG/ML VIAL IM PRN ×2 (16:41→16:42)
[2018-12-11] MEDS ORDERED: Acetaminophen/Codeine 30-300mg Tablet PO PRN (16:41)
[2018-12-11] MEDS ORDERED: Milk Of Magnesia 30 ML UDCUP PO PRN (16:41)
[2018-12-11] MEDS ORDERED: Acetaminophen 325 MG TAB PO PRN (16:41)
[2018-12-11] MEDS ORDERED: Mag-Al 1200 mg/1200 mg/30 ML UDCUP PO PRN (16:41)
[2018-12-11] MEDS ORDERED: Fleet Enema 133 ML BOT PR PRN (16:41)
[2018-12-11] MEDS ORDERED: Promethazine HCl 25 MG/ML VIAL SLOW IVP PRN (16:42)
[2018-12-11] MEDS ORDERED: PACU-Morphine 4MG/ML VIAL SLOW IVP PRN (16:42)
[2018-12-11] MEDS ORDERED: Morphine Sulfate 2 MG/ML SYRINGE SLOW IVP PRN (16:42)
[2018-12-11] MEDS ORDERED: Ondansetron HCl/PF 4 MG/2 ML Vial IVP PRN (16:42)
[2018-12-11] MEDS ORDERED: HYDROmorphone 2 MG/ML VIAL SLOW IVP PRN (16:42)
[2018-12-11] MEDS ORDERED: Meperidine HCl/PF 25 MG/ML VIAL SLOW IVP PRN (16:42)
[2018-12-11] MEDS ORDERED: CEFAZOLIN/Water 2 GM/20 ML SYRINGE SLOW IVP SCH (16:45)
[2018-12-11] MEDS ORDERED: Ondansetron PF 4 MG/2 ML Vial ONE (17:03)
[2018-12-11] MEDS ORDERED: Glycopyrrolate 0.2 MG/ML 5 ML SYRINGE ONE (17:03)
[2018-12-11] MEDS ORDERED: Rocuronium Bromide 10 MG/ML (10ML VIAL) ONE (17:03)
[2018-12-11] MEDS ORDERED: PROPOFOL 200 MG/20 ML VIAL ONE (17:03)
[2018-12-11] MEDS ORDERED: Lidocaine 1% PF 5 ML VIAL ONE (17:03)
[2018-12-11] MEDS ORDERED: Dexamethasone 20 MG/5 ML VIAL ONE (17:03)
[2018-12-11] MEDS ORDERED: ePHEDrine 50 MG/ML VIAL ONE (17:03)
[2018-12-11] MEDS ORDERED: Atorvastatin Calcium 10 MG TAB PO SCH (21:00)
[2018-12-11] MEDS ORDERED: Allopurinol 300 MG TAB PO SCH (21:00)
[2018-12-11] MEDS ORDERED: Famotidine 20 MG TAB PO SCH (21:00)
[2018-12-11] MEDS: Metoprolol Tartrate 25 MG TAB PO SCH (21:46)
[2018-12-11] MEDS: CEFAZOLIN 2 GM/50 ML-DEXTROSE 2 GM in Premix Bag 1 BAG IVPB SCH (21:47)
[2018-12-11] MEDS: Sodium Chloride 0.9% 1,000 ML IV SCH (22:15)
[2018-12-11] MEDS: HYDROcodone/Acetaminophen 7.5/325 mg Tablet PO PRN (22:20)
[2018-12-12] MEDS: HYDROcodone/Acetaminophen 7.5/325 mg Tablet PO PRN ×2 (02:20→11:36)
[2018-12-12] MEDS: Sodium Chloride 0.9% 1,000 ML IV SCH (05:16)
[2018-12-12] MEDS: CEFAZOLIN 2 GM/50 ML-DEXTROSE 2 GM in Premix Bag 1 BAG IVPB SCH (05:28)
[2018-12-12] MEDS: Metoprolol Tartrate 25 MG TAB PO SCH (08:50)
[2018-12-12] MEDS ORDERED: Loratadine 10 MG TAB PO SCH (09:00)
--- NOTE | 2018-12-12 09:14 | PRG ---
DATE OF SERVICE: 12/12/2018 Mr. Gómez is postoperative day 1 from right-sided L2-L3 diskectomy and L4-L5 laminectomy with spondylolisthesis and treatment with in situ fusion. He denies any leg pain. Has excellent strength. He would like to be dismissed. We went over do's and don'ts in the postoperative period. Job ID: [id number]
[2018-12-12 11:23] VITALS: BP 113/62; TEMP 98.1
--- NOTE | 2018-12-12 14:28 | OP ---
DATE OF PROCEDURE: 12/11/2018 OPERATING ROOM: OR 11. PREPROCEDURE DIAGNOSES: Low back and bilateral leg pain with right anterior thigh pain, lumbar disk extrusion, lumbar spondylolisthesis with stenosis. 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 PROCEDURE PERFORMED: 1. Right L2-L3 hemilaminotomy, foraminotomy, and diskectomy. 2. Use of operative microscope for microdissection. 3. L4-L5 laminectomy, partial facetectomy, and foraminotomy. 4. L4-L5 posterior lateral in situ fusion. DESCRIPTION OF PROCEDURE: After informed consent was obtained from the patient, the patient was brought to the OR. Proper patient, pause, and identification were carried out. He was placed under excellent endotracheal anesthesia and positioned prone on the OR table. All appropriate points were padded. We identified two incisions to allow for approach to the L2-L3 right-sided segment and the L4-L5 segment. These regions were sterilely cleansed, prepared, and draped. Proper patient, pause, and identification were carried out. Through two separate incisions, we exposed the right L2-L3 segment and the L4-L5 bilateral segment including facet complexes at L4-L5. Localization film confirmed our area of interest. We then performed a right L2-L3 hemilaminotomy, foraminotomy, and diskectomy with use of the microscope for microdissection and L4-L5 laminectomy, partial facetectomy, foraminotomies. We saved the bone with autograft obtained from same incision allograft and this was placed in the posterolateral regions following decortication of the facet complexes to allow for in situ fusion. We were pleased with our decompression and the wound was copiously irrigated throughout. We maximized hemostasis. We then closed the wounds in anatomic layers following vancomycin powder sprinkling. Job ID: [id number]
== END 2018-12-12 13:25 | disposition home or self-care (01) ==
LOC: SDC 09:36 → SURG A 17:50 → SDC 12-12 13:25
PROVIDERS: ATTEND Surgery
PROC: 0SG0071 Fusion of Lumbar Vertebral Joint with Autologous Tissue Substitute, Posterior Approach, Posterior Column, Open Approach (ICD-10-PCS; principal; 2018-12-11)
PROC: 01NB0ZZ Release Lumbar Nerve, Open Approach (ICD-10-PCS; 2018-12-11)
PROC: 0SB20ZZ Excision of Lumbar Vertebral Disc, Open Approach (ICD-10-PCS; 2018-12-11)
DX: M43.16 Spondylolisthesis, lumbar region (principal); M48.061 Spinal stenosis, lumbar region without neurogenic claudication; M51.16 Intervertebral disc disorders with radiculopathy, lumbar region; E78.5 Hyperlipidemia, unspecified; K21.9 Gastro-esophageal reflux disease without esophagitis; Z79.1 Long term (current) use of non-steroidal anti-inflammatories (NSAID); Z79.82 Long term (current) use of aspirin; Z79.899 Other long term (current) drug therapy
CPT/HCPCS: 76000; J1100; J2001; J2405; J2704; J3010; J3370; J3490